=== PATIENT | female | born 1950 | race Caucasian/White ===

== ENCOUNTER 2018-09-21 13:54 | Outpatient (REF) | payer OTHER, SELFPAY | END 2018-09-21 14:14 | LOC: LBN 13:54 | PROVIDERS: PCP Family Medicine; Visit Provider Nurse Practitioner Family | DX: R30.0 Dysuria (principal) | CPT/HCPCS: 87077; 87086; 87186 ==

== ENCOUNTER 2018-10-02 15:06 | Outpatient (REF) | payer OTHER, SELFPAY | END 2018-10-02 15:26 | LOC: LBN 15:06 | PROVIDERS: PCP Family Medicine; Visit Provider Nurse Practitioner Family | DX: Z87.440 Personal history of urinary (tract) infections (principal); R82.79 Other abnormal findings on microbiological examination of urine | CPT/HCPCS: 87086 ==

== ENCOUNTER 2018-10-08 11:25 | Outpatient (REF) | payer OTHER, SELFPAY | END 2018-10-08 11:45 | LOC: LBN 11:25 | PROVIDERS: PCP Family Medicine; Visit Provider Nurse Practitioner Women's Health | DX: R31.9 Hematuria, unspecified (principal) | CPT/HCPCS: 87077; 87086; 87186 ==

== ENCOUNTER 2018-10-15 10:32 | Outpatient (CLI) | payer OTHER, SELFPAY ==
[2018-10-15 13:22] LABS: ALT 53 U/L (12-78); AST 26 U/L (15-37); Alkaline Phosphatase 77 U/L (46-116); Anion Gap 11.4 mmol/L (3-11); BUN 18 mg/dL (7-18); Bilirubin, Total 0.4 mg/dL (0.2-1.0); CO2 25.6 mmol/L (21.0-32.0); CREATININE 1.01 mg/dL (0.55-1.02); Calcium 9.5 mg/dL (8.5-10.1); Chloride 102 mmol/L (98-107); Cholesterol 265 mg/dL (50-200); Estimated GFR 54.84 (mL/min/1.73m2); Glucose 84 mg/dL (70-100); HDL Cholesterol 77 mg/dL (40-60); LDL CHOLESTEROL 167 mg/dL (<100); Potassium 4.7 mmol/L (3.5-5.1); Sodium 139 mmol/L (136-145); Total Protein 7.2 g/dL (6.4-8.2); Triglyceride 134 mg/dL (30-150)
== END 2018-10-15 10:52 ==
PROVIDERS: PCP Family Medicine; Visit Provider Family Medicine
DX: F32.9 Major depressive disorder, single episode, unspecified (principal); E78.5 Hyperlipidemia, unspecified; M65.30 Trigger finger, unspecified finger; Z00.00 Encounter for general adult medical examination without abnormal findings
CPT/HCPCS: 36415; 80053; 80061; 83721

== ENCOUNTER 2018-10-19 00:43 | Outpatient (CLI) | payer OTHER, SELFPAY ==
--- NOTE | 2018-10-19 09:49 | DI.US_ITS ---
SYMPTOM/DIAGNOSIS: RECURRENT CITROBACTER KOSERI UTI, ? POLYP A49.8, N39.0 RENAL ULTRASOUND: 10/19 The kidneys are normal in size and shape and there is no evidence of a renal mass, hydronephrosis or nephrolithiasis. Urinary bladder is unremarkable in appearance with pre and post void urinary bladder volume measurements 242 cc and 8 cc respectively. CONCLUSION: Normal renal ultrasound.
== END 2018-10-19 01:03 ==
PROVIDERS: PCP Family Medicine; Visit Provider Nurse Practitioner Women's Health
DX: A49.8 Other bacterial infections of unspecified site (principal); N39.0 Urinary tract infection, site not specified
CPT/HCPCS: 76770

== ENCOUNTER 2018-10-27 13:16 | Outpatient (REF) | payer OTHER, SELFPAY | END 2018-10-27 13:36 | LOC: LBN 13:16 | PROVIDERS: PCP Family Medicine; Visit Provider Nurse Practitioner Women's Health | DX: N39.0 Urinary tract infection, site not specified (principal) | CPT/HCPCS: 87086 ==

== ENCOUNTER 2018-11-04 11:57 | Day surgery (SDC) | payer OTHER, SELFPAY ==
[2018-11-04 12:13] VITALS: BP 153/76; PULSE 82; RESP 16; TEMP 36.7; O2SAT 100
[2018-11-04] MEDS: Lidocaine 2% Pres-Free 5 ML VIAL (12:41)
--- NOTE | 2018-11-04 12:55 | W.PM.DSUDISC ---
Discharge Plan Disposition Patient Disposition: HOME Condition: Good Discharge Details Reason For Visit: trigger finger release Attending Provider: Rajeev Blanchard Primary Care Provider: An Cha Home Meds and New Rx's Prescriptions: New ibuprofen 800 mg tablet 800 mg PO TID PRN (Reason: pain) Qty: 20 RF: 0 Continue calcium carb-D3-mag [id number] [phone] pg-[id number]-mg tablet 1 tab PO DAILY RF: 0 duloxetine [Cymbalta] 20 mg capsule,delayed release(DR/EC) 20 mg PO DAILY Qty: 90 RF: 4 simvastatin 20 mg tablet 20 mg PO QPM Qty: 90 RF: 4 estradiol [Vagifem] 10 mcg tablet 10 mcg VG three times weekly Qty: 36 RF: 12 loteprednol etabonate [Lotemax] 0.5 % drops,suspension 1 drp OP QID RF: 0 MASSAGE DIRECTED RF: 0 cyanocobalamin (vitamin B-12) 1,000 MCG/1 ML solution 1,000 mcg IM ONCE Qty: 3 RF: 12 clobetasol 15 GM ointment 15 gm Topical PRN Qty: 1 RF: 2 sulfamethoxazole-trimethoprim [Bactrim DS] 800-160 mg tablet 1 tab PO BID Qty: 20 RF: 1 Discharge Instructions Additional Instructions: Bend and straighten fingers R hand 10 times/hour when awake to prevent swelling. Keep dressings dry for 48 hours. After 48 hours, remove dressings. May then shower or bathe and get incision wet. Leave incision uncovered when it is dry and sealed. Take ibuprofen as needed for pain. Use R hand as much as discomfort allows. Follow up in 's office in 10-14 days for suture removal. Referrals: Rajeev Blanchard MD [ [facility] STAFF PHYSICIAN] - (f/u in 10-14 days.) Activity:: Activity as Tolerated Remove Dressings/Wound Care:: 48 hours Shower/Bathe:: 48 hours Diet:: As Tolerated Discharge Orders Discharge Orders: Discharge Order (Routine); Ordered 11/04/18 Ordered By: Rajeev Blanchard DS: Diagnosis Discharge Diagnosis (1) Trigger finger: Start date: 11/04/18 Start time: 12:55 Status: Acute
--- NOTE | 2018-11-05 12:30 | ROE_ITS ---
REPORT OF OPERATIVE PROCEDURE DATE OF PROCEDURE November 04, 2018 PREOPERATIVE DIAGNOSIS Trigger right ring finger. POSTOPERATIVE DIAGNOSIS Trigger right ring finger. PROCEDURE Tendon sheath incision for trigger right ring finger. ANESTHESIA Local infiltration 2% Xylocaine solution and 0.5% Marcaine with epinephrine solution. SURGEON Rajeev Blanchard M.D. INDICATIONS This is a 68-year-old white female with painful locking of her left ring finger of several months dur ing. This has failed to improve with rest and antiinflammatory medications. Clinical exam showed obvi ous triggering of the right ringer finger, it was painful. She has a painful nodule in her palm as we ll. Trigger finger release was recommended to alleviate her pain on a permanent basis. The risks and complications of the procedure explained to the patient in detail preop. DESCRIPTION OF PROCEDURE The patient was taken the Operating Room on 11/04/2018. She was placed supine on the Operating Table . The right hand, wrist and forearm were prepped and draped free in usual sterile fashion. I infiltra rosalio over the proximal ting of the flexor sheath of the right ring finger with 2% Xylocaine solution . I then make a transverse incision parallel to the distal plantar flexion crease, and about 5 millim eters distal to it. It is centered over the flexor sheath of the left ring finger. The incision was a bout 2 cm in length. The incision was carried down through the skin to the subcu. Blunt tip Littler s cissors were then used to mobilize soft tissue away from the flexor sheath. Under direct vision, the flexor sheath was incised the entire length of the proximal ting. The carmelo ent was then asked to actively flex and extend her right ring finger. Her finger now no longer catche s or locks. The wound was irrigated with saline solution. The wound margins were infiltrated with 0.5% Marcaine w ith epinephrine solution. The skin edges were approximated with interrupted #4-0 Nylon sutures. Steri le dressings were applied, followed by light pressure dressing. The patient tolerated the procedure w ell and was discharged to the Day Surgery Unit in good condition. The patient was discharged home from the Day Surgery Unit with instructions to flex and extend her fi ngers of her right hand 10 times an hour while awake to prevent swelling. She may use her right hand as much as discomfort allows. She may remove her dressings after 48 hours. She may then shower, bathe and get her incision wet. She is to leave the incision uncovered when it is dry and sealed. She will take ibuprofen q. 6 hours as needed for discomfort. She will followup in Dr. Blanchard's office in 10 to 14 days for suture removal.
== END 2018-11-04 13:18 | disposition home or self-care (01) ==
PROVIDERS: PCP Family Medicine; Visit Provider Orthopaedic Surgery
PROC: (CPT 26055; principal; 2018-11-04 13:00)
DX: M65.341 Trigger finger, right ring finger (principal)
CPT/HCPCS: 26055

== ENCOUNTER 2018-11-19 01:16 | Outpatient (CLI) | payer OTHER, SELFPAY ==
--- NOTE | 2018-11-19 08:19 | DI.CT_ITS ---
SYMPTOM/DIAGNOSIS: RECURRENT UTI WITH SOME BACTERIA, ? STRUCTURAL ISSUE, M39.0, MICROSCOPIC HEMATURIA, T31.[address]: The study is a CT urogram which was obtained following intravenous administration of 100 cc's of Omnipaque 350. The left kidney is unremarkable. There is rotation of the axis of the right kidney which is basically an incidental finding. There is no evidence of a right or left renal mass or cyst or hydronephrosis. Note is made of normal ureters. The collecting structures are intact. There is some thickening of the bladder wall which is nonspecific but could indicate cystitis. The liver is intact save for a small radiolucency in the inferior portion of the right hepatic lobe which cannot be fully characterized on the present examination but likely represents either a small cyst or hemangioma. Further assessment with ultrasound could be considered. There is no abnormality involving the gallbladder with no stones or ductal dilatation. The pancreas is unremarkable. The spleen is unremarkable. The adrenals are normal. There is no evidence of bowel pathology and the appendix is normal. There is no evidence of free air or free fluid in the intraperitoneal space. There is bladder wall thickening with no focal mass or bladder calculus identified. The reproductive organs as visualized are unremarkable. There is no evidence of a hernia. There is no evidence of a mass or adenopathy in the abdomen or pelvis. There are mild atherosclerotic changes involving the aorta without evidence of an aneurysm. Degenerative changes involving the lower dorsal and lower lumbar spine are apparent. No regions of osseous sclerosis, osteolysis or bony expansion are apparent. SUMMARY: The examination reveals bladder wall thickening which is suspicious for cystitis. Incidental note is made in this patient of some rotation of the axis of the right kidney which is a normal variant. This study is essentially unremarkable. Please see the body of the report for the complete details of this evaluation.
[2018-11-19] MEDS: Omnipaque 350 MG/ML 100 ML BTL IJ (09:15)
== END 2018-11-19 01:36 ==
PROVIDERS: PCP Family Medicine; Visit Provider Nurse Practitioner Gerontology
DX: N39.0 Urinary tract infection, site not specified (principal); R31.29 Other microscopic hematuria; N30.91 Cystitis, unspecified with hematuria
CPT/HCPCS: 74178; J3490

== ENCOUNTER 2019-10-08 08:19 | Outpatient (CLI) | payer OTHER, SELFPAY ==
[2019-10-08 10:40] LABS: ALT 36 U/L (14-59); AST 16 U/L (15-37); Albumin 3.8 g/dL (3.4-5.0); Alkaline Phosphatase 65 U/L (46-116); Anion Gap 8.4 mmol/L (3-11); BUN 20 mg/dL (7-18); Bilirubin, Total 0.5 mg/dL (0.2-1.0); CO2 27.6 mmol/L (21.0-32.0); CREATININE 0.75 mg/dL (0.55-1.02); Chloride 108 mmol/L (98-107); Glucose 98 mg/dL (70-100); Sodium 144 mmol/L (136-145); Total Protein 6.7 g/dL (6.4-8.2)
[2019-10-08 11:21] LABS: Calculated LDL 157 mg/dL; Cholesterol 254 mg/dL (50-200); HDL Cholesterol 82 mg/dL (40-60); Triglyceride 77 mg/dL (30-150)
== END 2019-10-08 08:39 ==
PROVIDERS: PCP Family Medicine; Visit Provider Family Medicine
DX: E78.5 Hyperlipidemia, unspecified (principal)
CPT/HCPCS: 36415; 80053; 80061

== ENCOUNTER 2019-10-20 00:42 | Outpatient (CLI) | payer OTHER, SELFPAY ==
--- NOTE | 2019-10-20 10:52 | DI.MAMMO_ITS ---
EXAM: MAMMO SCREENING CLINICAL HISTORY: screening, Z12.39 TECHNIQUE: Mammograms were interpreted according to the usual protocol including computer analysis w Siemens CAD system, tomosynthesis and C-view imaging. COMPARISON: [id number] FINDINGS: The breasts are composed of scattered fibroglandular densities, breast density category B. There are no suspicious masses or suspicious microcalcifications. There has been no interval change when henry red with the previous examinations. IMPRESSION: Category 1, negative mammogram. Yearly screening mammography is recommended. BI-RADS Cat 1 - Negative Breast Density - Category B - Scattered areas of fibroglandular density
== END 2019-10-20 01:02 ==
PROVIDERS: PCP Family Medicine; Visit Provider Nurse Practitioner Family
DX: Z12.31 Encounter for screening mammogram for malignant neoplasm of breast (principal)
CPT/HCPCS: 77063; 77067

== ENCOUNTER 2021-05-23 00:52 | Outpatient (CLI) | payer MEDICARE, BC, SELFPAY ==
--- NOTE | 2021-05-23 12:00 | DI.MAMMO_ITS ---
Exam(s) MAMMO SCREENING EXAM: MAMMO SCREENING CLINICAL HISTORY: screening. TECHNIQUE: Bilateral full field digital CC and MLO mammographic images were obtained with 3D tomosyn thesis and utilizing computer aided detection (CAD). COMPARISON: Prior mammograms dating back to 2011, the most recent being October 2019. FINDINGS: There are no CAD designations. There are no new spiculated masses nor malignant appearing microcalcification groups. There is no significant architectural distortion nor skin thickening-retraction. IMPRESSION: No radiographic evidence of malignancy. BI-RADS Category 1 - Negative Breast Density - Category B - Scattered areas of fibroglandular density Breast density Category C or D implies that the patient has dense breast tissue. Dense breast tissue can make it harder to find cancer on a mammogram. Dense breast tissue is also associated with an incr eased risk of breast cancer. This information about the result of the mammogram report was provided to the patient to raise their awareness. Use this report when you speak with the patient about their risks for breast cancer, which includes their family history. At that time, you may recommend additional screening tests (Ultrasoun d or MRI) as these tests may add significant information. A negative radiographic report should not delay biopsy if a dominant or clinically suspicious mass is present. Up to ten percent of cancers are not identified on mammography. A negative report may reinforce clinical impression. Adenosis and dense breasts may obscure an underlying neoplasm. False positive reports average 6 to 10%. Patient will receive a letter notifying them of these results.
== END 2021-05-23 01:12 ==
PROVIDERS: PCP Family Medicine; Visit Provider Nurse Practitioner Family
DX: Z12.31 Encounter for screening mammogram for malignant neoplasm of breast (principal)
CPT/HCPCS: 77063; 77067